=== PATIENT | male | born 2000 | race African-American/Black ===

== ENCOUNTER 2020-06-10 10:08 | Emergency (ER) | payer OTHER ==
[~2020-06-10] VITALS: Ht 182.8 cm; Wt 75.6 kg
[2020-06-10] MEDS ORDERED: AMLO-250 PO (10:27)
[2020-06-10] MEDS ORDERED: KETOROLAC 60 MG/2 ML VIAL IM STA (10:31)
[2020-06-10] MEDS ORDERED: diphenhydrAMINE 50 MG/ML INJ (BENADRYL) IM STA (10:31)
[2020-06-10] MEDS ORDERED: METOCLOPRAMIDE INJ 10 MG/2 ML (REGLAN) IM STA (10:31)
--- NOTE | 2020-06-10 10:40 | ED Headache ---
General Chief Complaint: Head/Cervical Problems Stated Complaint: HEADACHE Source: patient History of Present Illness Date Seen by Provider: Jun 10, 2020 Time Seen by Provider: 10:12 Initial Comments 20 yo male presenting with complaints of headache in posterior and right side of head. It feels similar to prior migraine headaches for him. He has history of hypertension and migraine headaches. He takes Amlodipine 5 mg daily for blood pressure and denies missing any doses. He has had this headache for 3 days now. Usually with Ibuprofen and sleep the headache will go away. He denies any fever or chills. He has had no nausea or vomiting. He has no change in his vision. He denies any numbness or tingling in his arms or legs. He has no weakness or loss of strength in his arms or legs. Allergies and Home Medications Allergies Coded Allergies: No Known Drug Allergies (Unverified , 06/10/20) Home Medications Amlodipine Besylate 5 Mg Tablet, 5 MG PO DAILY, (Reported) Patient Home Medication List Home Medication List Reviewed: Yes Review of Systems Review of Systems Constitutional: No chills, No dizziness, No fever, No weakness Eyes: Denies Blindness, Denies Blurred Vision; Photophobia; Denies Vision Changes Ears, Nose, Mouth, Throat: no symptoms reported Respiratory: no symptoms reported Cardiovascular: no symptoms reported Gastrointestinal: no symptoms reported Genitourinary: no symptoms reported Skin: no symptoms reported Psychiatric/Neurological: See HPI, Headache Past Felblil-Ddnnht-Jlqcgx Hx Patient Social History Recent Foreign Travel: No Contact w/Someone Who Travel: No Past Medical History Surgeries: No Respiratory: No Cardiac: Yes Hypertension Neurological: Yes Headaches /Migraines Genitourinary: No Gastrointestinal: No Musculoskeletal: No Endocrine: No HEENT: No Psychosocial: No Integumentary: No Physical Exam Vital Signs Vital Signs - First Documented 06/10/20 10:15 Temp 36.7 Pulse 78 Resp 20 B/P (MAP) 168/110 (129) Pulse Ox 100 O2 Delivery Room Air Capillary Refill : Height, Weight, BMI Height: '" Weight: lbs. oz. kg; BMI Method: General Appearance: WD/WN, no apparent distress HEENT: PERRL/EOMI, normal ENT inspection, TMs normal, pharynx normal Neck: non-tender, full range of motion, supple, normal inspection Cardiovascular: normal peripheral pulses, regular rate, rhythm Respiratory: chest non-tender, lungs clear, normal breath sounds, no respiratory distress, no accessory muscle use Gastrointestinal: normal bowel sounds, soft Extremities: normal range of motion, non-tender, normal inspection, normal capillary refill Psychiatric: alert, oriented x 3 Crainal Nerves: normal hearing, normal speech, PERRL; No facial asymmetry, No facial droop, No facial paresthesias, No facial weakness Coordination/Gait: normal gait Motor/Sensory: no motor deficit, no sensory deficit Skin: normal color, warm/dry Progress/Results/Core Measures Results/Orders My Orders Orders - GEOFF LEDEZMA MD Ketorolac Injection (Toradol Injection) (06/10/20 10:31) Diphenhydramine Injection (Benadryl Inje (06/10/20 10:31) Metoclopramide Injection (Reglan Injecti (06/10/20 10:31) Vital Signs/I&O 06/10/20 06/10/20 06/10/20 06/10/20 10:15 10:30 10:45 10:46 Temp 36.7 36.7 Pulse 78 84 63 Resp 20 20 20 B/P (MAP) 168/110 (129) 167/118 (134) 148/95 (112) Pulse Ox 100 100 100 O2 Delivery Room Air Room Air Room Air 06/10/20 06/10/20 06/10/20 11:00 11:05 11:05 Temp 36.6 36.6 Pulse 73 75 75 Resp 20 20 20 B/P (MAP) 151/88 (109) 144/94 (111) 144/94 (129) Pulse Ox 100 100 100 O2 Delivery Room Air Room Air Progress Progress Note #1: Progress Note With pt reporting this feels similar to prior headaches and having elevated blood pressure will give Toradol, Reglan, Benadryl and see how he responds. He has elevated blood pressure and may need adjustment of his Amlodipine dose but will defer to his pcp out of [place], [place]. He just got back to [employer] here in [place] from travelling to see family for the holidays. He denies feeling bad other than the headache, which feels similar to what he has had before. If his pressure does not go down with meds and headache improving with meds then will discuss more aggressive work up with pt. Progress Note #2: Progress Note bp improving even before meds given. starting to improve headache after shots. discharge to go back to [employer] before he gets too sleepy from the meds. Counseled on follow up and return precautions Departure Impression Primary Impression: Migraine headache without aura Qualified Codes: G43.009 - Migraine without aura, not intractable, without status migrainosus Additional Impression: Hypertension Qualified Codes: I10 - Essential (primary) hypertension Disposition: HOME, SELF-CARE Condition: Improved Departure-Patient Inst. Decision time for Depature: 11:00 Referrals: NO,LOCAL PHYSICIAN (PCP) Primary Care Physician [facility] [place] Instructions: Home Headache Remedies, Migraines in Adults, High Blood Pressure (DC) Add. Discharge Instructions: Try to rest in a cool dark room. Try Excedrin Migraine or Ibuprofen Migraine medicine for additional relief if needed. Continue on your Amlodipine but consider checking your blood pressures and keeping track of them so you can discuss the medicine and pressures with your doctor and see if they need to adjust your dose of Amlodipine or add any additional medicine for blood pressure control. All discharge instructions reviewed with patient and/or family. Voiced understanding. Work/School Note: School/Childcare Release Date Seen in the Emergency Department: Jun 10, 2020 Time Dismissed from Emergency Department: 11:12 Return to School: Jun 11, 2020 Other Restrictions Listed Below: No practice or sports today. May return to normal activity 11 Jun 2020. GEOFF LEDEZMA MD Jun 10, 2020 10:40
[2020-06-10 11:05] VITALS: BP 144/94
== END 2020-06-10 11:05 | disposition home or self-care (01) ==
LOC: ER FS 10:11
DX: G43.009 Migraine without aura, not intractable, without status migrainosus (principal); I10 Essential (primary) hypertension
CPT/HCPCS: 99284